=== PATIENT | female | born 1965 | race Caucasian/White ===

== ENCOUNTER → 2023-12-14 | Emergency (ER) | payer OTHER ==
[~2023-12-14] MED LIST: KETOROLAC 30 MG/ML INJ ONE
[2023-12-14 09:34] LABS: Absolute Basophils 0.1 K/uL (0-0.5); Absolute Eosinophils 0.2 K/uL (0-0.5); Absolute Lymphocytes (CBC) 1.3 K/uL (0.7-4.9); Absolute Monocytes 0.3 K/uL (0.1-1.3); Absolute Neutrophil 3.9 K/uL (1.8-8.0); Basophils % 1.1 % (0-1.3); Eosinophils % 3.9 % (0-4.4); Hematocrit 41.4 % (36.0-45.0); Hemoglobin 13.8 g/dL (12.0-15.0); Lymphocytes % 22.6 % (15.3-44.8); MCH 30.3 pg (27.0-35.0); MCHC 33.4 g/dL (32.0-36.0); MCV 90.9 fL (80-100); MPV 8.9 fL (7.6-11.3); Monocytes % 5.6 % (3.3-12.3); Neutrophils % 66.8 % (41.7-73.7); Nucleated Red Blood Cells % 0.1 % (0-0); Platelets 206 thou/uL (152-406); RBC Red Blood Cell Count 4.56 M/uL (3.86-4.86); Red Cell Distribution Width 12.8 % (12.1-15.2)
[2023-12-14 09:53] LABS: Troponin High Sensitivity 4.8 pg/mL (<58.9)
--- NOTE | 2023-12-14 10:48 | RAD REPORT ---
EXAM DESCRIPTION: [facility] Single View12/14/2023 9:50 am CLINICAL HISTORY: Chest pain COMPARISON: none FINDINGS: The lungs appear clear of acute infiltrate. The heart is normal size IMPRESSION: No acute abnormalities displayed
--- NOTE | 2023-12-14 12:34 | ER ---
Nurse's Notes [facility] Name: Blanca Leiva Age: 58 yrs Sex: Female : 1965 Arrival Date: 12/14/2023 Time: 08:33 Bed 3 Private MD: Diagnosis: Chest pain Presentation: 12/13 08:46 Chief complaint: Midsternal chest pressure that woke her from sleep at 0600. hb Coronavirus screen: At this time, the client does not indicate any symptoms associated with coronavirus-19. Ebola Screen: No symptoms or risks identified at this time. Initial Sepsis Screen: Does the patient meet any 2 criteria? No. Patient's initial sepsis screen is negative. Does the patient have a suspected source of infection? No. Patient's initial sepsis screen is negative. Risk Assessment: Do you want to hurt yourself or someone else? Patient reports no desire to harm self or others. Onset of symptoms was December 14, 2023 at 06:00. 08:46 Method Of Arrival: Ambulatory hb 08:46 Acuity: REBA 2 hb Triage Assessment: 08:47 General: Appears in no apparent distress. uncomfortable, Behavior is calm, cooperative. hb Pain: Pain currently is 6 out of 10 on a pain scale. Neuro: Level of Consciousness is awake, alert, obeys commands, Oriented to person, place, time, situation. Cardiovascular: Reports chest pain, Patient's skin is warm and dry. Respiratory: Respiratory effort is even, unlabored, Respiratory pattern is regular, symmetrical. Historical: - Allergies: 11:44 Codeine; ld1 11:44 PENICILLINS; ld1 - Home Meds: 08:47 Lisinopril Oral [Active]; hb - PMHx: 08:47 Hypertension; hb - PSHx: 08:47 section; hb - Immunization history:: Adult Immunizations up to date. - Social history:: Smoking status: Patient denies any tobacco usage or history of. Screenin:49 [facility] ED Fall Risk Assessment (Adult) History of falling in the last 3 months, ld1 including since admission No falls in past 3 months (0 pts). Abuse screen: Denies threats or abuse. Denies injuries from another. Nutritional screening: No deficits noted. Tuberculosis screening: No symptoms or risk factors identified. Assessment: 09:49 General: Appears in no apparent distress. comfortable, Behavior is calm, cooperative, ld1 appropriate for age. Pain: Complains of pain in chest Pain does not radiate. Pain currently is 7 out of 10 on a pain scale. Quality of pain is described as throbbing, Pain began suddenly, Is continuous. Neuro: Level of Consciousness is awake, alert, obeys commands, Oriented to place, time, situation. Cardiovascular: Capillary refill < 3 seconds Patient's skin is warm and dry. Rhythm is sinus bradycardia. Respiratory: Airway is patent Respiratory effort is even, unlabored. GI: Abdomen is flat, non-distended. : No signs and/or symptoms were reported regarding the genitourinary system. EENT: No signs and/or symptoms were reported regarding the EENT system. Derm: No signs and/or symptoms reported regarding the dermatologic system. Musculoskeletal: No signs and/or symptoms reported regarding the musculoskeletal system. Vital Signs: 08:46 BP 180 / 103; Pulse 83; Resp 24; Temp 98.3; Pulse Ox 100% on R/A; Weight 106.59 kg; hb Height 5 ft. 9 in. ; Pain 6/10; 09:49 BP 154 / 109; Pulse 76; Resp 18; Pulse Ox 100% on R/A; ld1 11:53 BP 160 / 108; Pulse 55; Resp 14; Pulse Ox 98% ; ko1 12:44 BP 150 / 98; Pulse 68; Resp 14; Temp 98; Pulse Ox 99% ; ko1 08:46 Body Mass Index 34.70 (106.59 kg, 175.26 cm) hb 08:46 Pain Scale: Adult hb ED Course: 08:35 Patient arrived in ED. mg5 08:47 Triage completed. hb 08:47 Arm band placed on. hb 08:49 Client placed on continuous cardiac and pulse oximetry monitoring. NIBP monitoring hb applied. cardiac monitor technician on. Pulse ox on. NIBP on. 08:49 EKG done, by ED staff, reviewed by Mio Osborne MD. Patient maintains SpO2 hb saturation greater than 95% on room air. 09:02 Huey Leon MD is Attending Physician. sp3 09:03 Nadine Mercer, JC is Primary Nurse. ld1 09:20 Initial lab(s) drawn, by me, sent to lab. Inserted saline lock: 20 gauge in right ko1 antecubital area, using aseptic technique. Blood collected. 09:23 Basic Metabolic Panel Sent. ko1 09: CBC with Diff Sent. ko1 :23 Troponin HS Sent. ko1 :24 BNP Sent. ko1 09:24 D-Dimer Sent. ko1 09:49 Patient has correct armband on for positive identification. Placed in gown. Bed in low ld1 position. Call light in reach. Side rails up X2. cardiac monitor technician on. Door closed. Noise minimized. Warm blanket given. :49 No provider procedures requiring assistance completed. ld1 09:52 XRAY Chest (1 view) In Process Unspecified. EDMS 10:55 Assisted to bathroom. ko1 11:45 Troponin High Sensitivity: Draw 2 hours after first Sent. ld1 11:53 Provided Education on: ba. Assisted to bathroom. ko1 12:12 Assisted to bathroom. ko1 12:44 IV discontinued, bleeding controlled, patient pulled out her own IV and discarded it. ko1 Administered Medications: 11:44 Drug: Ketorolac IVP 30 mg IVP once Route: IVP; Site: right antecubital; ld1 12:00 Follow up: Response: No adverse reaction ko1 Medication: :49 VIS not applicable for this client. ld1 Outcome: 12:34 Discharge ordered by . sp3 12:44 Discharged to home ambulatory, with family, ko1 12:44 Condition: good 12:44 Discharge instructions given to patient, Instructed on discharge instructions, follow up and referral plans. Demonstrated understanding of instructions, follow-up care, 12:46 Patient left the ED. ko1 Signatures: Dispatcher [employer] EDMT Alina Blevins RN RN Nadine Mercer RN RN ld1 Huey Leon MD MD sp3 Natalie Arechiga RN RN ko1 Mini Alva mg5 Corrections: (The following items were deleted from the chart) 11:44 08:47 Allergies: No Known Allergies; [facility]
--- NOTE | 2023-12-14 12:34 | EDPHYS ---
Physician Documentation [facility] Name: Blanca Leiva Age: 58 yrs Sex: Female : 1965 Arrival Date: 12/14/2023 Time: 08:33 Bed 3 Private MD: ED Physician Huey Leon HPI: 12/13 09:23 This 58 yrs old Female presents to ER via Ambulatory with complaints of Chest Pain. sp3 09:23 58-year-old female with history of hypertension presents to the ED with substernal sp3 chest pain worse with movement that started approximately 6 AM upon awakening. Patient has had a negative cardiac stress test 2 years ago and has no other medical or surgical history. Pain is described as worse when she moves and also worse when she takes a deep breath. She denies any prolonged immobilization, prior history of DVT or PE. She denies headache, URI symptoms, cough, congestion, fever, shortness of breath, back pain, abdominal pain, nausea, vomiting, diarrhea, syncope, near syncope, rash, focal neurological deficit, known sick contacts, travel history, or any other signs or symptoms on ROS at this time.. Historical: - Allergies: 11:44 Codeine; ld1 11:44 PENICILLINS; ld1 - Home Meds: 08:47 Lisinopril Oral [Active]; hb - PMHx: 08:47 Hypertension; hb - PSHx: 08:47 section; hb - Immunization history:: Adult Immunizations up to date. - Social history:: Smoking status: Patient denies any tobacco usage or history of. ROS: 09:35 Constitutional: Negative for fever, chills, and weight loss, Eyes: Negative for injury, sp3 pain, redness, and discharge, ENT: Negative for injury, pain, and discharge, Neck: Negative for injury, pain, and swelling, Respiratory: Negative for shortness of breath, cough, wheezing, and pleuritic chest pain, Abdomen/GI: Negative for abdominal pain, nausea, vomiting, diarrhea, and constipation, Back: Negative for injury and pain, MS/Extremity: Negative for injury and deformity, Skin: Negative for injury, rash, and discoloration, Neuro: Negative for headache, weakness, numbness, tingling, and seizure, Psych: Negative for depression, anxiety, suicide ideation, homicidal ideation, and hallucinations, Allergy/Immunology: Negative for hives, rash, and allergies, Endocrine: Negative for neck swelling, polydipsia, polyuria, polyphagia, and marked weight changes, Hematologic/Lymphatic: Negative for swollen nodes, abnormal bleeding, and unusual bruising, 09:35 All other systems are negative, Exam: 09:35 Constitutional: This is a well developed, well nourished patient who is awake, alert, sp3 and in no acute distress. Head/Face: Normocephalic, atraumatic. Eyes: Pupils equal round and reactive to light, extra-ocular motions intact. Lids and lashes normal. Conjunctiva and sclera are non-icteric and not injected. Cornea within normal limits. Periorbital areas with no swelling, redness, or edema. ENT: Nares patent. No nasal discharge, no septal abnormalities noted. External auditory canals are clear. Oropharynx with no redness, swelling, or masses, exudates, or evidence of obstruction, uvula midline. Mucous membranes moist. Neck: Trachea midline, no thyromegaly or masses palpated, and no cervical lymphadenopathy. Supple, full range of motion without nuchal rigidity, or vertebral point tenderness. No Meningismus. Cardiovascular: Regular rate and rhythm with a normal S1 and S2. No gallops, murmurs, or rubs. Normal PMI, no JVD. No pulse deficits. Respiratory: Lungs have equal breath sounds bilaterally, clear to auscultation and percussion. No rales, rhonchi or wheezes noted. No increased work of breathing, no retractions or nasal flaring. Abdomen/GI: Soft, non-tender, with normal bowel sounds. No distension or tympany. No guarding or rebound. No evidence of tenderness throughout. Back: No spinal tenderness. No costovertebral tenderness. Full range of motion. Skin: Warm, dry with normal turgor. Normal color with no rashes, no lesions, and no evidence of cellulitis. MS/ Extremity: Pulses equal, no cyanosis. Neurovascular intact. Full, normal range of motion. Neuro: Awake and alert, GCS 15, oriented to person, place, time, and situation. Cranial nerves II-XII grossly intact. Motor strength 5/5 in all extremities. Sensory grossly intact. Cerebellar exam normal. Normal gait. Psych: Awake, alert, with orientation to person, place and time. Behavior, mood, and affect are within normal limits. 09:35 Chest/axilla: Patient has pain to palpation along both sides of the sternum reproducible pain. Cardiac and pulmonary exams are normal.. 09:35 ECG was reviewed by the Attending Physician. EKG demonstrates normal sinus rhythm at 61 bpm with normal intervals, slightly leftward axis, normal QRS, normal ST/T-segment's without evidence of acute ischemia. Vital Signs: 08:46 BP 180 / 103; Pulse 83; Resp 24; Temp 98.3; Pulse Ox 100% on R/A; Weight 106.59 kg; hb Height 5 ft. 9 in. ; Pain 6/10; 09:49 BP 154 / 109; Pulse 76; Resp 18; Pulse Ox 100% on R/A; ld1 11:53 BP 160 / 108; Pulse 55; Resp 14; Pulse Ox 98% ; ko1 12:44 BP 150 / 98; Pulse 68; Resp 14; Temp 98; Pulse Ox 99% ; ko1 08:46 Body Mass Index 34.70 (106.59 kg, 175.26 cm) hb 08:46 Pain Scale: Adult hb MDM: 09:06 Patient medically screened. sp3 09:36 Data reviewed: vital signs, nurses notes, old medical records, lab test result(s), EKG, sp3 radiologic studies. ED course: 58-year-old female with history of hypertension now with new onset chest pain. Patient's troponin is pending however heart score is probable low risk. EKG is normal as well. Patient is in no acute distress and pain is reproducible. Differential diagnosis includes acute coronary syndrome, angina, pleurisy, musculoskeletal chest pain, pneumonia, bronchitis, gastritis, GERD, and PE, among others. Workup will include laboratory values including troponin and D-dimer, EKG, chest x-ray and general observation. Will repeat troponin in 2 hours for trending purposes. Disposition will be based on workup, patient course and final heart score.. 12:33 ED course: Second troponin is negative and D-dimer is negative as well. Patient feels sp3 improved. She does endorse that she had a wing stop last night and feels like this could be indigestion. 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 Will safely discharged home at this time.. 12/13 09:03 Order name: Basic Metabolic Panel; Complete Time: 10:53 ld12/13 09:03 Order name: CBC with Diff; Complete Time: 10:53 ld1 12/13 09:03 Order name: Troponin HS; Complete Time: 10:53 ld12/13 09:23 Order name: D-Dimer; Complete Time: 10:53 sp3 12/13 09:23 Order name: BNP; Complete Time: 12:17 sp3 12/13 09:37 Order name: Troponin High Sensitivity: Draw 2 hours after first; Complete Time: 12:17 sp3 12/13 09:03 Order name: XRAY Chest (1 view); Complete Time: 10:53 ld1 12/13 09:03 Order name: EKG; Complete Time: 09:04 ld1 12/13 09:03 Order name: Cardiac monitoring; Complete Time: 09:04 ld12/13 09:03 Order name: EKG - Nurse/Tech; Complete Time: 09:04 ld1 12/13 09:03 Order name: IV Saline Lock; Complete Time: 09:23 ld12/13 09:03 Order name: Labs collected and sent; Complete Time: 09:23 ld1 12/13 09:03 Order name: O2 Per Protocol; Complete Time: 09:04 ld12/13 09:03 Order name: O2 Sat Monitoring; Complete Time: 09:04 ld1 Administered Medications: 11:44 Drug: Ketorolac IVP 30 mg IVP once Route: IVP; Site: right antecubital; ld1 12:00 Follow up: Response: No adverse reaction ko1 Disposition Summary: 12/14/23 12:34 Discharge Ordered Notes: Location: Home sp3 Condition: Stable sp3 Diagnosis - Chest pain sp3 Followup: sp3 - With: Private Physician - When: Upon discharge from the Emergency Department - Reason: Continuance of care Discharge Instructions: - Discharge Summary Sheet sp3 - Nonspecific Chest Pain, Adult sp3 Forms: - Medication Reconciliation Form sp3 - Thank You Letter sp3 - Antibiotic Education sp3 - Prescription Opioid Use sp3 - Patient Portal Instructions sp3 - Leadership Thank You Letter sp3 Signatures: Dispatcher [employer] Alina Martinez RN RN hb Sims, Lauren, RN RN ld1 Huey Leon MD MD sp3 Hawk, Natalie RN ko1 Corrections: (The following items were deleted from the chart) 09:35 09:23 58-year-old female with history of hypertension presents to the ED with sp3 substernal chest pain worse with movement that started approximately 6 AM upon awakening. Patient has had a negative cardiac stress test 2 years ago and has no other medical or surgical history. Pain is described as worse when she moves and also worse when she takes a deep breath. She denies any prolonged immobilization, prior history of DVT or PE,. sp3 11:44 08:47 Allergies: No Known Allergies; hb ld1
[2023-12-14 13:32] VITALS: BP 150/98; TEMP 98; O2SAT 99
--- NOTE | 2023-12-14 17:01 | EKG ---
Test Date: 2023-12-14 Test Time: 07:47:57 Key Holder: Alivia SI MEASUREMENT RESULTS: Intervals: Rate: 61 SD: 160 QRSD: 86 QT: 406 QTc: 408 [place]: P: 57 SD: 160 QRS: 0 T: 42 INTERPRETIVE STATEMENTS: Normal sinus rhythm Low voltage QRS Borderline ECG No previous ECG available for comparison Electronically Signed On 12-14-23 16:59:47 CDT by Jose Ramos
== END ==
LOC: ER 08:33
DX: R07.9 Chest pain, unspecified (principal); I10 Essential (primary) hypertension; Z88.0 Allergy status to penicillin; Z88.5 Allergy status to narcotic agent
CPT/HCPCS: 36415; 71045; 80048; 83880; 84484; 85025; 85379; 93005